=== PATIENT | female | born 1965 | race Caucasian/White ===

== ENCOUNTER 2016-09-21 13:10 | Emergency (ER) | payer MEDICAID, OTHER, SELFPAY ==
[2016-09-21 13:31] VITALS: BP 149/93
--- NOTE | 2016-09-21 14:16 | CR ---
Wrist 2V Lt HISTORY: Injury COMPARISON: None FINDINGS: There is subtle evidence of cortical disruption at the lateral aspect of the radial styloi d. The carpal bones are intact. The ulna is unremarkable. Impression: 1. A subtle nondisplaced fracture of the radial styloid process cannot be excluded.
[2016-09-21] MEDS ORDERED: Ketorolac 60 MG/2 ML SDV IM ONE (14:25)
--- NOTE | 2016-09-21 14:32 | EDM.PDOC ---
ED HPI Trauma - General Chief Complaint: Upper Extremity Injury/Pain Stated Complaint: LEFT WRIST PAIN/FALL Time Seen by Provider: 09/21/16 13:35 Source: Reports: Patient, RN notes reviewed History Limitations: Reports: No limitations - History of Present Illness INITIAL COMMENTS - FREE TEXT/NARRATIVE: 51-year-old female presents emergency department for a complaint of left wrist pain, She slipped and fell on the ice yesterday on outstretched hand she has some edema and limited range of movement of the left wrist Allergies/ADRs: Allergies No Known Allergies Allergy (Verified 09/21/16 13:25) Home Medications: Ambulatory Orders NK [No Known Home Meds] 09/21/16 [Confirmed 09/21/16] Past Medical History - Past Surgical History Female Surgical History: Reports: section Social & Family History - Tobacco Use Smoking Status *Q: Current Every Day Smoker Years of Tobacco use: 30 Packs/Tins Daily: 1 Review of Systems - Review of Systems Review Of Systems: See Below Constitutional: Reports: no symptoms Musculoskeletal: Reports: joint pain (Left wrist) Trauma Exam - Physical Exam Exam: See Below Text/Narrative:: Examination of her left wrist she does have an obvious amount of edema on the lateral aspect radial pulses 2+ she has limited range of motion of the wrist full range of motion of the digits no pain or tenderness at the elbow Exam Limited By: No limitations General Appearance: Reports: alert, WD/WN, no apparent distress Course - Vital Signs Last Recorded V/S: Last Vital Signs Temp 97.9 F 09/21/16 13:29 Pulse 73 09/21/16 13:29 Resp 14 09/21/16 13:29 BP 149/93 H 09/21/16 13:29 Pulse Ox 96 09/21/16 13:29 - Orders/Labs/Meds Meds: Medications Discontinued Medications Generic Name Dose Route Start Last Admin Trade Name Freq PRN Reason Stop Dose Admin Ketorolac Tromethamine 60 mg 09/21/16 14:25 Toradol IM 09/21/16 14:26 ONETIME ONE Departure - Departure Time of Disposition: 14:31 Disposition: Home, Self-Care 01 Condition: good Clinical Impression: Distal radius fracture, left Qualifiers: Encounter type: initial encounter Fracture type: closed Fracture morphology: Colles' Qualified Code(s): S52.532A - Colles' fracture of left radius, initial encounter for closed fracture Forms: ED Department Discharge Additional Instructions: Please follow up with orthopedics for further evaluation - Assessment/Plan Plan: Assessment Acuity = acute Site and laterality = left radius fracture Etiology = secondary to a fall on outstretched hand Manifestations = pain Location of injury = home Lab values = x-ray demonstrates a subtle fracture distal radius Plan called and Discussed case with 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 This note was dictated using [employer] voice recognition software please call with any questions.
--- NOTE | 2016-09-21 14:43 | PCM.CONS ---
H&P History of Present Illness - General Date of Service: 09/21/16 Admit Problem/Dx: Юлия is a 51 year old female who is here for a distal radius fracture. She noted that she fell on the ice today and injured her left wrist. She is having severe pain in that area. She notes increase swelling. She notes no other injuries at this time. Source of Information: Patient History Limitations: Reports: No limitations - Related Data Allergies/Adverse Reactions: Allergies Allergy/AdvReac Type Severity Reaction Status Date / Time No Known Allergies Allergy Verified 09/21/16 13:25 Home Medications: Home Meds NK [No Known Home Meds] 09/21/16 [History] Past Medical History - Past Surgical History Female Surgical History: Reports: section Social & Family History - Tobacco Use Smoking Status *Q: Current Every Day Smoker Years of Tobacco use: 30 Packs/Tins Daily: 1 H&P Review of Systems - Review of Systems: Review Of Systems: See Below General: Reports: no symptoms Musculoskeletal: Reports: arm pain Skin: Reports: bruising Neurological: Reports: no symptoms Exam - Exam Exam: See Below - Vital Signs Vital Signs: Last Vital Signs Temp 36.6 C 09/21/16 13:29 Pulse 73 09/21/16 13:29 Resp 14 09/21/16 13:29 BP 149/93 H 09/21/16 13:29 Pulse Ox 96 09/21/16 13:29 Weight: 145 lb - Exam General: alert, oriented Extremities: normal inspection, normal pulses, other (small abrasion noted to left wrist) Peripheral Pulses: 2+: radial (L), radial (R) Skin: warm, dry, intact Neuro Extensive - Mental Status: alert, oriented x3 Consult PN Assessment/Plan Problem List Initiated/Reviewed/Updated: Yes Plan: Юлия is a 51 year old female who is here for a distal radius fracture. She noted that she fell on the ice today and injured her left wrist. She is having severe pain in that area. She notes increase swelling. She notes no other injuries at this time. Assessment: UPPER EXTREMITY Musculoskeletal Physical Examination Constitutional: Vital signs including height and weight were reviewed and documented on the patient's chart. General appearance demonstrates normal development and body habitus. HEENT: Normocephalic, atraumatic. Neurological: The patient is alert and oriented to person, place, and time. Mood and affect are appropriate. Gait and station are normal. Intact sensation is noted. Deep tendon reflexes are equal. Clonus negative. Neal' s negative. Coordination and balance are normal. Right upper extremity: Inspection/palpation: Normal symmetry and appearance without tenderness. Range of motion: Full range of motion without pain. Stability: Stable through range of motion. Strength: Normal muscle strength and tone. Skin: Normal skin tone without rashes or lesions. Left upper extremity: Inspection/palpation:Small abrasion noted to left wrist. tenderness noted on lateral wrist. Range of motion: Full range of motion with pain. Strength: Normal muscle strength and tone. Imaging: Distal radius fracture. Plan: I applied a splint at this time. I would like her to follow up in ortho on with an appointment with Marcus to follow for a functional brace placement. She needs to take ibuprofen for pain management. She is to call sooner if any issues.
== END 2016-09-21 14:52 | disposition home or self-care (01) ==
LOC: JP.ED 13:10
DX: S52.532A Colles' fracture of left radius, initial encounter for closed fracture (principal); F17.210 Nicotine dependence, cigarettes, uncomplicated; W00.0XXA Fall on same level due to ice and snow, initial encounter
CPT/HCPCS: 73100; 96372; 99284; J1885; 99283

== ENCOUNTER 2019-11-30 18:24 | Emergency (ER) | payer MEDICAID, OTHER, SELFPAY ==
[2019-11-30 18:43] VITALS: BP 172/105; PULSE 84
--- NOTE | 2019-11-30 18:51 | EDM.PDOC ---
ED HPI GENERAL MEDICAL PROBLEM - General Chief Complaint: Chest Pain Stated Complaint: CHEST PAIN Time Seen by Provider: 11/30/19 18:35 Source of Information: Reports: Patient History Limitations: Reports: No Limitations - History of Present Illness INITIAL COMMENTS - FREE TEXT/NARRATIVE: 54-year-old female presents with acute epigastric and chest discomfort which is been recurring over the past 2 weeks. She is a regular methamphetamine user and used again today. She is hypertensive, hyperventilating and very anxious. An evaluation at the clinic a couple of days ago with an EKG showed no cardiac acute findings and a work-up was negative, she was started on Prilosec and has taken 1 dose. Some of the pain radiates into the upper chest and into her arm. Onset: Unknown/Unsure (Symptoms have been waxing and waning for weeks) Associated Symptoms: Reports: Chest Pain, Malaise, Shortness of Breath. 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: - Past Surgical History Head Surgeries/Procedures: Reports: None Cardiovascular Surgical History: Reports: None Female Surgical History: Reports: Section Dermatological Surgical History: Reports: None Social & Family History - Tobacco Use Smoking Status *Q: Current Every Day Smoker Years of Tobacco use: 40 Packs/Tins Daily: 1 Used Tobacco, but Quit: No Second Hand Smoke Exposure: Yes - Caffeine Use Caffeine Use: Reports: Coffee - Alcohol Use Days Per Week of Alcohol Use: 7 Number of Drinks Per Day: 2 Total Drinks Per Week: 14 - Recreational Drug Use Recreational Drug Use: Yes Drug Use in Last 12 Months: Yes Recreational Drug Type: Reports: Methamphetamine Recreational Drug Use Frequency: Socially ED ROS GENERAL - Review of Systems Review Of Systems: See Below Constitutional: Denies: Fever, Chills HEENT: Reports: No Symptoms Cardiovascular: Reports: Chest Pain GI/Abdominal: Reports: Abdominal Pain ED EXAM, GENERAL - Physical Exam Exam: See Below Exam Limited By: No Limitations General Appearance: Alert, Anxious, Mild Distress Eye Exam: Bilateral Eye: Normal Inspection Head: Atraumatic Respiratory/Chest: No Respiratory Distress, Lungs Clear Cardiovascular: Regular Rate, Rhythm GI/Abdominal: Soft, Tender (Mild discomfort to palpation across the upper abdomen but no focal guarding or rebound) Extremities: Normal Inspection. No: Pedal Edema Neurological: Alert, Oriented, No Motor/Sensory Deficits Psychiatric: Anxious Skin Exam: Warm, Dry EKG INTERPRETATION Rhythm: NSR EKG Interpretation Comments: Left ventricular hypertrophy, no other findings Course - Vital Signs Last Recorded V/S: Last Vital Signs Temp 96.7 F L 11/30/19 18:40 Pulse 84 11/30/19 18:42 Resp 15 11/30/19 18:42 BP 172/105 H 11/30/19 18:42 Pulse Ox 100 11/30/19 18:42 - Orders/Labs/Meds Orders: Active Orders 24 hr Category Date Time Status EKG Documentation Completion [RC] ASDIRECTED Care 11/30/19 18:36 Active EKG 12 Lead [EK] Routine Ther 11/30/19 18:35 Ordered Labs: Laboratory Tests 11/30/19 11/30/19 Range/Units 18:35 18:35 WBC 10.4 (4.5-11.0) K/uL RBC 5.76 H (3.30-5.50) M/uL Hgb 15.5 H (12.0-15.0) g/dL Hct 47.4 (36.0-48.0) % MCV 82 (80-98) fL MCH 27 (27-31) pg MCHC 33 (32-36) % Plt Count 347 (150-400) K/uL Neut % (Auto) 44 (36-66) % Lymph % (Auto) 41 (24-44) % [place] % (Auto) 11 H (2-6) % Eos % (Auto) 3 (2-4) % Baso % (Auto) 1 (0-1) % Sodium 136 L (140-148) mmol/L Potassium 4.4 (3.6-5.2) mmol/L Chloride 102 (100-108) mmol/L Carbon Dioxide 25 (21-32) mmol/L Anion Gap 13.4 (5.0-14.0) mmol/L BUN 17 (7-18) mg/dL Creatinine 0.8 (0.6-1.0) mg/dL Est Cr Clr Drug Dosing 74.38 mL/min Estimated GFR (MDRD) > 60 (>60) Glucose 84 (74-106) mg/dL Calcium 9.3 (8.5-10.1) mg/dL Total Bilirubin 0.2 (0.2-1.0) mg/dL AST 31 (15-37) U/L ALT 47 (12-78) U/L Alkaline Phosphatase 127 H (46-116) U/L Troponin I < 0.017 (0.000-0.056) ng/mL Total Protein 7.4 (6.4-8.2) g/dL Albumin 3.7 (3.4-5.0) g/dL Globulin 3.7 H (2.3-3.5) g/dL Albumin/Globulin Ratio 1.0 L (1.2-2.2) - Re-Assessments/Exams Free Text/Narrative Re-Assessment/Exam: 11/30/19 19:11 CBC, CMP, troponin were obtained. Once in the emergency room the patient calm down and her blood pressure normalized fairly rapidly and she did not have recurrence of symptoms. 11/30/19 19:26 Labs are normal, troponin is negative, patient did not redevelop symptoms while in the emergency room. Her presentation with acute chest pain in a panic state with hyperventilation and hypertension was almost certainly brought on by the acute methamphetamine abuse. Departure - Departure Time of Disposition: 19:46 Disposition: Home, Self-Care 01 Clinical Impression: Non-cardiac chest pain - Discharge Information Instructions: Nonspecific Chest Pain, Adult Referrals: PCP,None [Primary Care Provider] - Forms: ED Department Discharge Care Plan Goals: Consider monitoring your blood pressure while avoiding methamphetamine. Make an appointment next week to establish care for a routine physical and increase activity as tolerated. Dr. Merida or Farzaneh Soria are recommended. Sepsis Event Note - Evaluation Sepsis Screening Result: No Definite Risk - Focused Exam Vital Signs: Vital Signs Temp Pulse Resp BP Pulse Ox 11/30/19 18:42 84 15 172/105 H 100 11/30/19 18:40 96.7 F L 82 20 197/111 H 100 11/30/19 18:36 96.7 F L 11/30/19 18:27 82 20 197/111 H 100 Date Exam was Performed: 11/30/19 Time Exam was Performed: 20:04 - My Orders Last 24 Hours: My Active Orders 11/30/19 18:35 EKG 12 Lead [EK] Routine 11/30/19 18:36 EKG Documentation Completion [RC] ASDIRECTED - Assessment/Plan Last 24 Hours: My Active Orders 11/30/19 18:35 EKG 12 Lead [EK] Routine 11/30/19 18:36 EKG Documentation Completion [RC] ASDIRECTED
== END 2019-11-30 19:45 | disposition home or self-care (01) ==
LOC: JP.ED 18:24
DX: R07.89 Other chest pain (principal); I10 Essential (primary) hypertension; F17.210 Nicotine dependence, cigarettes, uncomplicated
CPT/HCPCS: 36415; 80053; 84484; 85025; 93005; 99284; 99285-25

== ENCOUNTER 2020-01-03 10:49 | Emergency (ER) | payer MEDICAID ==
[2020-01-03] MEDS ORDERED: Sodium Chloride 0.9% 10 ML Syringe FLUSH PRN (11:21)
[2020-01-03] MEDS ORDERED: Sodium Chloride 0.9% 1,000 ML IV STA (11:21)
[2020-01-03] MEDS ORDERED: fentaNYL 100 MCG/2 ML SDV IVPUSH ONE (11:23)
[2020-01-03] MEDS ORDERED: Ondansetron 4 MG/2 ML SDV IVPUSH ONE (11:23)
--- NOTE | 2020-01-03 11:25 | EDM.PDOC ---
ED HPI GENERAL MEDICAL PROBLEM - General Chief Complaint: Abdominal Pain Stated Complaint: SHARP PAIN UNDER RIGHT BREAST Time Seen by Provider: 01/03/20 11:18 Source of Information: Reports: Patient, RN Notes Reviewed History Limitations: Reports: No Limitations - History of Present Illness INITIAL COMMENTS - FREE TEXT/NARRATIVE: 54-year-old female presents emergency department today complaint of right upper quadrant abdominal pain, she states she never had this type of pain before she has had no abdominal surgeries this pain really got worse this morning there is no nausea she does admit she was tubing yesterday spent most the time on her abdomen, no shortness of breath no chest pain Right Upper Abdomen Pain Score (Numeric/FACES): 10 - Related Data Allergies Allergy/AdvReac Type Severity Reaction Status Date / Time No Known Allergies Allergy Verified 01/03/20 11:12 Home Meds: Home Meds Omeprazole 40 mg PO DAILY 01/03/20 [History] Past Medical History HEENT History: Reports: Impaired Vision 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: Reports: 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: - Past Surgical History Head Surgeries/Procedures: Reports: None Female Surgical History: Reports: Section Social & Family History - Tobacco Use Smoking Status *Q: Heavy Tobacco Smoker Years of Tobacco use: 38 Packs/Tins Daily: 1 - Caffeine Use Caffeine Use: Reports: Coffee - Alcohol Use Days Per Week of Alcohol Use: 3 Number of Drinks Per Day: 2 Total Drinks Per Week: 6 - Recreational Drug Use Recreational Drug Use: No ED ROS GENERAL - Review of Systems Review Of Systems: See Below Constitutional: Reports: No Symptoms HEENT: Reports: No Symptoms Respiratory: Reports: No Symptoms Cardiovascular: Reports: Chest Pain (Lower ribs right side) GI/Abdominal: Reports: Abdominal Pain, Flatus. Denies: Nausea, Vomiting : Reports: No Symptoms Musculoskeletal: Reports: No Symptoms ED EXAM, GI/ABD - Physical Exam Exam: See Below Exam Limited By: No Limitations General Appearance: Alert, Mild Distress Respiratory/Chest: No Respiratory Distress, Lungs Clear, Normal Breath Sounds, No Accessory Muscle Use, Chest Non-Tender Cardiovascular: Regular Rate, Rhythm, No Murmur, Other (Ribs are tender right side) GI/Abdominal Exam: Soft, Tender (Right upper quadrant area) Course - Vital Signs Last Recorded V/S: Last Vital Signs Temp 96.2 F L 01/03/20 11:10 Pulse 82 01/03/20 12:29 Resp 16 01/03/20 12:29 BP 130/76 01/03/20 12:29 Pulse Ox 95 01/03/20 12:29 - Orders/Labs/Meds Orders: Active Orders 24 hr Category Date Time Status Peripheral IV Care [RC] . DIRECTED Care 01/03/20 11:21 Active Sodium Chloride 0.9% [Saline Flush] Med 01/03/20 11:21 Active 10 ml FLUSH ASDIRECTED PRN Peripheral IV Insertion Adult [OM.PC] Urgent Oth 01/03/20 11:21 Ordered Medication Orders Sodium Chloride (Saline Flush) 10 ml FLUSH ASDIRECTED PRN PRN Reason: Keep Vein Open Last Admin: 01/03/20 11:49 Dose: 10 ml Documented by: FESTUS Labs: Laboratory Tests 01/03/20 01/03/20 01/03/20 Range/Units 11:27 11:27 11:27 WBC 8.8 (4.5-11.0) K/uL RBC 5.52 H (3.30-5.50) M/uL Hgb 14.8 (12.0-15.0) g/dL Hct 46.5 (36.0-48.0) % MCV 84 (80-98) fL MCH 27 (27-31) pg MCHC 32 (32-36) % Plt Count 321 (150-400) K/uL Neut % (Auto) 62 (36-66) % Lymph % (Auto) 27 (24-44) % Casey % (Auto) 8 H (2-6) % Eos % (Auto) 2 (2-4) % Baso % (Auto) 1 (0-1) % Sodium 141 (140-148) mmol/L Potassium 4.3 (3.6-5.2) mmol/L Chloride 104 (100-108) mmol/L Carbon Dioxide 28 (21-32) mmol/L Anion Gap 8.6 (5.0-14.0) mmol/L BUN 19 H (7-18) mg/dL Creatinine 0.9 (0.6-1.0) mg/dL Est Cr Clr Drug Dosing 66.12 mL/min Estimated GFR (MDRD) > 60 (>60) Glucose 111 H (74-106) mg/dL Lactic Acid 1.0 (0.4-2.0) mmol/L Calcium 8.8 (8.5-10.1) mg/dL Total Bilirubin 0.3 (0.2-1.0) mg/dL AST 36 (15-37) U/L ALT 55 (12-78) U/L Alkaline Phosphatase 130 H (46-116) U/L Troponin I < 0.017 (0.000-0.056) ng/mL Total Protein 7.5 (6.4-8.2) g/dL Albumin 3.7 (3.4-5.0) g/dL Globulin 3.8 H (2.3-3.5) g/dL Albumin/Globulin Ratio 1.0 L (1.2-2.2) Lipase 108 (73-393) U/L Urine Color (YELLOW) Urine Appearance (CLEAR) Urine pH (5.0-8.0) Ur Specific [place] (1.008-1.030) Urine Protein (NEGATIVE) mg/dL Urine Glucose (UA) (NEGATIVE) mg/dL Urine Ketones (NEGATIVE) mg/dL Urine Occult Blood (NEGATIVE) Urine Nitrite (NEGATIVE) Urine Bilirubin (NEGATIVE) Urine Urobilinogen (0.2-1.0) EU/dL Ur Leukocyte Esterase (NEGATIVE) Urine RBC (0-5) Urine WBC (0-5) Ur Epithelial Cells Amorphous Sediment Urine Bacteria Urine Mucus 01/03/20 Range/Units 13:44 WBC (4.5-11.0) K/uL RBC (3.30-5.50) M/uL Hgb (12.0-15.0) g/dL Hct (36.0-48.0) % MCV (80-98) fL MCH (27-31) pg MCHC (32-36) % Plt Count (150-400) K/uL Neut % (Auto) (36-66) % Lymph % (Auto) (24-44) % Casey % (Auto) (2-6) % Eos % (Auto) (2-4) % Baso % (Auto) (0-1) % Sodium (140-148) mmol/L Potassium (3.6-5.2) mmol/L Chloride (100-108) mmol/L Carbon Dioxide (21-32) mmol/L Anion Gap (5.0-14.0) mmol/L BUN (7-18) mg/dL Creatinine (0.6-1.0) mg/dL Est Cr Clr Drug Dosing mL/min Estimated GFR (MDRD) (>60) Glucose (74-106) mg/dL Lactic Acid (0.4-2.0) mmol/L Calcium (8.5-10.1) mg/dL Total Bilirubin (0.2-1.0) mg/dL AST (15-37) U/L ALT (12-78) U/L Alkaline Phosphatase (46-116) U/L Troponin I (0.000-0.056) ng/mL Total Protein (6.4-8.2) g/dL Albumin (3.4-5.0) g/dL Globulin (2.3-3.5) g/dL Albumin/Globulin Ratio (1.2-2.2) Lipase (73-393) U/L Urine Color Yellow (YELLOW) Urine Appearance Clear (CLEAR) Urine pH 6.0 (5.0-8.0) Ur Specific [place] 1.010 (1.008-1.030) Urine Protein Negative (NEGATIVE) mg/dL Urine Glucose (UA) Negative (NEGATIVE) mg/dL Urine Ketones Negative (NEGATIVE) mg/dL Urine Occult Blood Trace-intact H (NEGATIVE) Urine Nitrite Negative (NEGATIVE) Urine Bilirubin Negative (NEGATIVE) Urine Urobilinogen 0.2 (0.2-1.0) EU/dL Ur Leukocyte Esterase Negative (NEGATIVE) Urine RBC 5-10 H (0-5) Urine WBC Not seen (0-5) Ur Epithelial Cells Rare Amorphous Sediment Rare Urine Bacteria Not seen Urine Mucus Not seen Meds: Medications Generic Name Dose Route Start Last Admin Trade Name Freq PRN Reason Stop Dose Admin Sodium Chloride 10 ml 01/03/20 11:21 01/03/20 11:49 Saline Flush FLUSH 10 ml ASDIRECTED PRN Administration Keep Vein Open Discontinued Medications Generic Name Dose Route Start Last Admin Trade Name Freq PRN Reason Stop Dose Admin Fentanyl 50 mcg 01/03/20 11:23 01/03/20 11:37 Sublimaze IVPUSH 01/03/20 11:24 50 mcg ONETIME ONE Administration Hydromorphone HCl 1 mg 01/03/20 12:19 01/03/20 12:23 Dilaudid IVPUSH 01/03/20 12:20 1 mg ONETIME ONE Administration Sodium Chloride 1,000 mls @ 500 mls/hr 01/03/20 11:21 01/03/20 11:39 Normal Saline IV 01/03/20 13:20 500 mls/hr .BOLUS STA Administration Sodium Chloride 79 mls @ 3.5 mls/sec 01/03/20 11:45 01/03/20 11:50 Normal Saline IV 01/03/20 14:00 3.5 mls/sec ASDIRECTED MITA Administration Iopamidol 128 ml 01/03/20 11:31 01/03/20 11:50 Isovue-300 (61%) IV 01/03/20 11:32 128 ml ONETIME ONE Administration Ketorolac Tromethamine 30 mg 01/03/20 12:37 01/03/20 13:10 Toradol IVPUSH 01/03/20 12:38 30 mg ONETIME ONE Administration Ondansetron HCl 4 mg 01/03/20 11:23 01/03/20 11:35 Zofran IVPUSH 01/03/20 11:24 4 mg ONETIME ONE Administration Sodium Chloride 10 ml 01/03/20 11:31 01/03/20 11:37 Saline Flush FLUSH 01/03/20 11:32 10 ml ONETIME ONE Administration Departure - Departure Time of Disposition: 14:04 Disposition: Home, Self-Care 01 Condition: Fair Clinical Impression: Abdominal pain Qualifiers: Abdominal location: right upper quadrant Qualified Code(s): R10.11 - Right upper quadrant pain - Discharge Information Instructions: Abdominal Pain, Adult Referrals: Zheng Brewster NP [Primary Care Provider] - Forms: ED Department Discharge Additional Instructions: Try using ibuprofen for pain control for the next couple of days, please follow- up with your primary care in the next 3 to 5 days for further evaluation if your pain is not better, call or return to the emergency department worsening of symptoms Sepsis Event Note (ED) - Evaluation Sepsis Screening Result: Possible Sepsis Risk - Focused Exam Vital Signs: Vital Signs Temp Pulse Resp BP Pulse Ox 01/03/20 12:29 82 16 130/76 95 01/03/20 12:18 80 18 152/85 H 97 01/03/20 11:35 92 18 166/97 H 98 01/03/20 11:10 96.2 F L 99 21 H 187/114 H 98 01/03/20 11:08 96.2 F L 99 21 H 187/114 H 98 - My Orders Last 24 Hours: My Active Orders 01/03/20 11:21 Peripheral IV Care [RC] . DIRECTED Sodium Chloride 0.9% [Saline Flush] 10 ml FLUSH ASDIRECTED PRN Peripheral IV Insertion Adult [OM.PC] Urgent - Assessment/Plan Last 24 Hours: My Active Orders 01/03/20 11:21 Peripheral IV Care [RC] . DIRECTED Sodium Chloride 0.9% [Saline Flush] 10 ml FLUSH ASDIRECTED PRN Peripheral IV Insertion Adult [OM.PC] Urgent Plan: Assessment Acuity = acute Site and laterality = right upper quadrant abdominal pain Etiology = probably related to muscle skeletal trauma Manifestations = none Location of injury = Home Lab values = CBC, CMP unremarkable urinalysis does reveal 5-10 RBCs consistent with hematuria CT scan of the abdomen shows no acute process Plan She did not get significant relief from any of the narcotics provided however he got good relief from Toradol. I did review CT scan and lab results with her plan is to follow-up with her primary care in the next 3 to 5 days for further evaluation if not better in the meantime she will use ibuprofen for pain control This note was dictated using [employer] voice recognition software please call with any questions on syntax or grammar.
[2020-01-03] MEDS ORDERED: Iopamidol 612 MG/ML 500 ML Multipack Bottle IV ONE (11:31)
[2020-01-03] MEDS ORDERED: Sodium Chloride 0.9% 10 ML Syringe FLUSH ONE (11:31)
[2020-01-03] MEDS ORDERED: HYDROmorphone 1 MG/ML Syringe IVPUSH ONE (12:19)
[2020-01-03 12:30] VITALS: BP 130/76; PULSE 82
--- NOTE | 2020-01-03 12:31 | CT ---
Abdomen Pelvis w Cont CLINICAL HISTORY: Right upper quadrant pain, trauma COMPARISON: None. TECHNIQUE: Axial tomographic images are obtained from the dome of the diaphragm to the pubic symphysis without IV contrast enhancement. No oral contrast was used. Prescribed dose FINDINGS: The lung bases are clear. The liver shows no mass or biliary dilatation. The gallbladder contains some small densities in the dependent portion which are suspect for small stones. The spleen has a normal contour and size. The pancreas shows no mass or inflammatory change. The adrenal glands appear normal bilaterally. The kidneys show no mass, stones or hydronephrosis. The ureters have a normal course and contour. The bladder has a normal contour. There is a bicornuate uterus. The aorta has a normal contour. There are a few scattered all periaortic lymph nodes. These are nonspecific. Abdominal pelvic fat planes and low pelvic side hoff are well demarcated. The intestinal gas pattern is nonacute. Appendix has normal contour. Visualized osseous structures show no fracture IMPRESSION: No mass, adenopathy or inflammatory change Bicornuate uterus
[2020-01-03] MEDS ORDERED: Ketorolac 30 MG/ML SDV IVPUSH ONE (12:37)
== END 2020-01-03 14:35 | disposition home or self-care (01) ==
LOC: JP.ED 10:49
DX: R10.11 Right upper quadrant pain (principal); I10 Essential (primary) hypertension; F17.210 Nicotine dependence, cigarettes, uncomplicated
CPT/HCPCS: 36415; 74177; 80053; 81001; 83605; 83690; 84484; 85025; 96374; 96375; 99284; J1170; J1885; J2405; J3010; J7030; J7050; Q9967; 99283

== ENCOUNTER 2020-02-01 16:03 | Emergency (ER) | payer MEDICAID ==
[~2020-02-01 16:03] MED LIST: EPINEPHrine 1 MG/ML SDV ONE
[2020-02-01] MEDS ORDERED: DOPamine/Dextrose 5%-Water 400 MG/250 ML BAG ONE (16:10)
[2020-02-01] MEDS ORDERED: Sodium Chloride 0.9% 1,000 ML IV ONE (16:11)
[2020-02-01] MEDS ORDERED: DOPamine/Dextrose 5%-Water 400 MG/250 ML BAG IV SCH (16:15)
[2020-02-01] MEDS ORDERED: Sodium Bicarbonate 8.4% 50 MEQ/50 ML Syringe IVPUSH ONE (16:26)
[2020-02-01 16:32] VITALS: BP 114/50; PULSE 108
--- NOTE | 2020-02-01 16:35 | EDM.PDOC ---
ED HPI GENERAL MEDICAL PROBLEM - General Chief Complaint: Drug or Alcohol Abuse Stated Complaint: MEDICAL VIA [facility] Time Seen by Provider: 02/01/20 16:05 Source of Information: Reports: EMS, Old Records History Limitations: Reports: Altered Mental Status - History of Present Illness INITIAL COMMENTS - FREE TEXT/NARRATIVE: 54 yo female collapsed as she entered her home reportedly after methamphetamine use. EMS arrived to find her pulseless and nonbreathing. EMS was able to restore ROSC and arrives in our ER with assisted ventilations and a IO line in her L tibia. Onset: Today, Sudden Onset Date: 02/01/20 Duration: Minutes:, Constant Location: Reports: Generalized Severity: Severe Improves with: Reports: Other (assisted ventilations) Worsens with: Reports: Other (? drug OD) Context: Reports: Other (See HPI) Associated Symptoms: Reports: Syncope Treatments TIRE CLASSIFIER: Reports: Other (see below) (EPI, intubation, IV fluids, CPR) - Related Data Allergies Allergy/AdvReac Type Severity Reaction Status Date / Time No Known Allergies Allergy Verified 01/03/20 11:12 Home Meds: Home Meds Omeprazole 40 mg PO DAILY 01/03/20 [History] Past Medical History HEENT History: Reports: Impaired Vision 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: Reports: Hypertension [employer] History: Reports: - Past Surgical History Head Surgeries/Procedures: Reports: None Female Surgical History: Reports: Section Social & Family History - Caffeine Use Caffeine Use: Reports: Coffee ED ROS GENERAL - Review of Systems Review Of Systems: Unable To Obtain (coma) Reason Not Obtained: coma Constitutional: Reports: ROS unobtainable - Physical Exam Exam: See Below Exam Limited By: No Limitations General Appearance: Obtunded (comatose) Eye Exam: Bilateral Eye: Other (pupils midpoint and fixed) Ears: Normal External Exam, Normal Canal Nose: Normal Inspection, No Blood Throat/Mouth: Normal Inspection, Normal Lips, Normal Oropharynx, Normal Voice, No Airway Compromise Head Exam: Atraumatic, Normocephalic Neck: Normal Inspection Respiratory/Chest: Other (relative apnea with some agonal breaths) Cardiovascular: Regular Rate, Rhythm, No Edema GI/Abdominal: Normal Bowel Sounds, Soft, Non-Tender, No Distention Neuro Exam (Abbreviated): Unresponsive Back Exam: Normal Inspection Extremities: Normal Inspection, No Pedal Edema. No: Pedal Edema Psychiatric: Normal Affect, Normal Mood Skin Exam: Warm, Dry, Intact, Normal Color, No Rash Course - Vital Signs Last Recorded V/S: Last Vital Signs Temp 36.4 C 02/01/20 16:03 Pulse 93 02/01/20 16:18 Resp 11 L 02/01/20 16:18 BP 82/35 L 02/01/20 16:18 Pulse Ox 96 02/01/20 16:18 - Orders/Labs/Meds Orders: Active Orders 24 hr Category Date Time Status Bean Catheter Insertion [Insert Urinary Catheter] [OM. Care 02/01/20 16:15 Ordered PC] Q24H Urinary Catheter Assessment [RC] ASDIRECTED Care 02/01/20 16:11 Active Head wo Cont [CT] Stat Exams 02/01/20 16:18 Ordered ETHANOL BLOOD MEDICAL [CHEM] Stat Lab 02/01/20 16:19 Received TROPONIN I [CHEM] Stat Lab 02/01/20 16:06 Ordered DOPamine/Dextrose 5%-Water [DOPamine in D5W 400 MG/250 Med 02/01/20 16:15 Active ML] 400 mg in 250 ml IV TITRATE Sodium Chloride 0.9% [Normal Saline] 1,000 ml Med 02/01/20 16:11 Active IV .BOLUS Medication Orders Dopamine HCl/Dextrose (Dopamine In D5w 400 Mg/250 Ml) 400 mg in 250 mls @ 31.978 mls/hr IV TITRATE MITA; Protocol Last Admin: 02/01/20 16:15 Dose: 10 mcg/kg/min, 31.978 mls/hr Documented by: MAMI Sodium Chloride (Normal Saline) 1,000 mls @ 1,000 mls/hr IV .BOLUS ONE Stop: 02/01/20 17:10 Last Admin: 02/01/20 16:28 Dose: 1,000 mls/hr Documented by: MAMI Labs: Laboratory Tests 02/01/20 02/01/20 02/01/20 Range/Units 16:06 16:11 16:16 WBC 12.0 H (4.5-11.0) K/uL RBC 4.87 (3.30-5.50) M/uL Hgb 12.9 (12.0-15.0) g/dL Hct 41.6 (36.0-48.0) % MCV 85 (80-98) fL MCH 27 (27-31) pg MCHC 31 L (32-36) % Plt Count 238 (150-400) K/uL Puncture Site Rt.brachial ABG pH 6.949 L* (7.350-7.450) ABG pCO2 66.2 H (35.0-42.0) mmHg ABG pO2 199.0 H (75.0-100.0) mmHg ABG HCO3 13.8 L (22.0-26.0) mmol/L ABG Total CO2 14.1 L (21.0-25.0) mmol/L ABG O2 Saturation 97.2 (95.0-98.0) % ABG O2 Content 17.9 (15.0-23.0) %vol ABG Base Excess -19.6 mm/L ABG Hemoglobin 13.3 (12.0-16.0) g/dL ABG Oxyhemoglobin 93.5 % ABG Carboxyhemoglobin 2.9 H (0.0-1.6) % ABG Methemoglobin 0.9 % Kerwin Test TNP O2 Delivery Device Resuscitation bag Urine Color (YELLOW) Urine Appearance (CLEAR) Urine pH (5.0-8.0) Ur Specific [place] (1.008-1.030) Urine Protein (NEGATIVE) mg/dL Urine Glucose (UA) (NEGATIVE) mg/dL Urine Ketones (NEGATIVE) mg/dL Urine Occult Blood (NEGATIVE) Urine Nitrite (NEGATIVE) Urine Bilirubin (NEGATIVE) Urine Urobilinogen (0.2-1.0) EU/dL Ur Leukocyte Esterase (NEGATIVE) Urine RBC (0-5) Urine WBC (0-5) Ur Epithelial Cells Amorphous Sediment Urine Bacteria Urine Mucus Urine Opiates Screen Negative (NEGATIVE) Ur Oxycodone Screen Negative (NEGATIVE) Urine Methadone Screen Negative (NEGATIVE) Ur Propoxyphene Screen Negative (NEGATIVE) Ur Barbiturates Screen Negative (NEGATIVE) Ur Tricyclics Screen Negative (NEGATIVE) Ur Phencyclidine Scrn Negative (NEGATIVE) Ur Amphetamine Screen Presumptive positive H (NEGATIVE) U Methamphetamines Scrn Presumptive positive H (NEGATIVE) Urine MDMA Screen Presumptive positive H (NEGATIVE) U Benzodiazepines Scrn Negative (NEGATIVE) U Cocaine Metab Screen Negative (NEGATIVE) U Marijuana (THC) Screen Negative (NEGATIVE) 02/01/20 Range/Units Unknown WBC (4.5-11.0) K/uL RBC (3.30-5.50) M/uL Hgb (12.0-15.0) g/dL Hct (36.0-48.0) % MCV (80-98) fL MCH (27-31) pg MCHC (32-36) % Plt Count (150-400) K/uL Puncture Site ABG pH (7.350-7.450) ABG pCO2 (35.0-42.0) mmHg ABG pO2 (75.0-100.0) mmHg ABG HCO3 (22.0-26.0) mmol/L ABG Total CO2 (21.0-25.0) mmol/L ABG O2 Saturation (95.0-98.0) % ABG O2 Content (15.0-23.0) %vol ABG Base Excess mm/L ABG Hemoglobin (12.0-16.0) g/dL ABG Oxyhemoglobin % ABG Carboxyhemoglobin (0.0-1.6) % ABG Methemoglobin % Kerwin Test O2 Delivery Device Urine Color Yellow (YELLOW) Urine Appearance Clear (CLEAR) Urine pH 5.5 (5.0-8.0) Ur Specific [place] 1.025 (1.008-1.030) Urine Protein Negative (NEGATIVE) mg/dL Urine Glucose (UA) Negative (NEGATIVE) mg/dL Urine Ketones Negative (NEGATIVE) mg/dL Urine Occult Blood Negative (NEGATIVE) Urine Nitrite Negative (NEGATIVE) Urine Bilirubin Negative (NEGATIVE) Urine Urobilinogen 0.2 (0.2-1.0) EU/dL Ur Leukocyte Esterase Negative (NEGATIVE) Urine RBC 0-5 (0-5) Urine WBC 0-5 (0-5) Ur Epithelial Cells Few Amorphous Sediment Few Urine Bacteria Not seen Urine Mucus Not seen Urine Opiates Screen (NEGATIVE) Ur Oxycodone Screen (NEGATIVE) Urine Methadone Screen (NEGATIVE) Ur Propoxyphene Screen (NEGATIVE) Ur Barbiturates Screen (NEGATIVE) Ur Tricyclics Screen (NEGATIVE) Ur Phencyclidine Scrn (NEGATIVE) Ur Amphetamine Screen (NEGATIVE) U Methamphetamines Scrn (NEGATIVE) Urine MDMA Screen (NEGATIVE) U Benzodiazepines Scrn (NEGATIVE) U Cocaine Metab Screen (NEGATIVE) U Marijuana (THC) Screen (NEGATIVE) Meds: Medications Generic Name Dose Route Start Last Admin Trade Name Freq PRN Reason Stop Dose Admin Dopamine HCl/Dextrose 400 mg in 250 mls @ 31.978 mls/hr 02/01/20 16:15 02/01/20 16:15 Dopamine In D5w 400 Mg/250 Ml IV 10 mcg/kg/min TITRATE MITA 31.978 mls/hr Administration Protocol 10 MCG/KG/MIN Sodium Chloride 1,000 mls @ 1,000 mls/hr 02/01/20 16:11 02/01/20 16:28 Normal Saline IV 02/01/20 17:10 1,000 mls/hr .BOLUS ONE Administration Discontinued Medications Generic Name Dose Route Start Last Admin Trade Name Donna PRN Reason Stop Dose Admin Dopamine HCl/Dextrose Confirm 02/01/20 16:10 02/01/20 16:30 Dopamine In D5w 400 Mg/250 Ml Administered 02/01/20 16:11 Not Given Dose 400 mg in 250 mls @ as directed .ROUTE .STK-MED ONE Sodium Bicarbonate 50 meq 02/01/20 16:26 Sodium Bicarbonate 8.4% IVPUSH 02/01/20 16:27 ONETIME ONE Departure - Departure Time of Disposition: 16:38 Disposition: DC/Tfer to Acute Hospital 02 Condition: Critical Clinical Impression: Acidosis, Methamphetamine abuse Comatose Qualifiers: Coma depth: Burns coma 3-8 Coma timing: at arrival to emergency department Qualified Code(s): R40.2432 - Burns coma scale score 3-8, at arrival to emergency department - Discharge Information *PRESCRIPTION DRUG MONITORING PROGRAM REVIEWED*: Not Applicable *COPY OF PRESCRIPTION DRUG MONITORING REPORT IN PATIENT JANE: Not Applicable Referrals: PCP,None [Primary Care Provider] - Sepsis Event Note (ED) - Focused Exam Vital Signs: Vital Signs Temp Pulse Resp BP Pulse Ox 02/01/20 16:18 93 11 L 82/35 L 96 02/01/20 16:13 91 9 L 108/63 93 L 02/01/20 16:08 81 87/43 L 02/01/20 16:06 80 85/39 L 02/01/20 16:03 36.4 C 55 L 9 L 107/82 93 L - My Orders Last 24 Hours: My Active Orders 02/01/20 16:06 TROPONIN I [CHEM] Stat 02/01/20 16:11 Urinary Catheter Assessment [RC] ASDIRECTED Sodium Chloride 0.9% [Normal Saline] 1,000 ml IV .BOLUS 02/01/20 16:15 Bean Catheter Insertion [Insert Urinary Catheter] [OM.PC] Q24H DOPamine/Dextrose 5%-Water [DOPamine in D5W 400 MG/250 ML] 400 mg in 250 ml IV TITRATE 02/01/20 16:18 Head wo Cont [CT] Stat 02/01/20 16:19 ETHANOL BLOOD MEDICAL [CHEM] Stat - Assessment/Plan Last 24 Hours: My Active Orders 02/01/20 16:06 TROPONIN I [CHEM] Stat 02/01/20 16:11 Urinary Catheter Assessment [RC] ASDIRECTED Sodium Chloride 0.9% [Normal Saline] 1,000 ml IV .BOLUS 02/01/20 16:15 Bean Catheter Insertion [Insert Urinary Catheter] [OM.PC] Q24H DOPamine/Dextrose 5%-Water [DOPamine in D5W 400 MG/250 ML] 400 mg in 250 ml IV TITRATE 02/01/20 16:18 Head wo Cont [CT] Stat 02/01/20 16:19 ETHANOL BLOOD MEDICAL [CHEM] Stat
--- NOTE | 2020-02-01 17:27 | CRLCT ---
INDICATION: Coma. COMPARISON: None. TECHNIQUE: CT of the head without IV contrast. Coronal and sagittal reconstructions are provided. FINDINGS: There appears to be mild diffuse sulcal effacement suspicious for underlying cerebral edema. Discrete sulci are only visualized at the vertex. The bell-white differentiation appears preserved. No intracranial hemorrhage, mass effect, or evidence of acute infarct. No midline shift. No abnormal extra-axial fluid collections. Normal caliber ventricular system. Orbits and extraocular muscles are symmetric. Paranasal sinuses and mastoid air cells are clear. No acute fracture. Possible skin defect overlying the right lateral frontal bone, versus artifact. IMPRESSION: : 1. Mild diffuse sulcal effacement is suspicious for underlying cerebral edema. The bell-white differentiation appears preserved. 2. No other acute intracranial findings. 3. Possible skin defect overlying the right lateral frontal bone, versus artifact. Correlate with physical exam. Please note that all CT scans at this facility use dose modulation, iterative reconstruction, and/or weight-based dosing when appropriate to reduce radiation dose to as low as reasonably achievable. Dictated by Flores Billings MD @ Feb 01 2020 5:14PM Signed by Dr. Flores Billings @ Feb 01 2020 5:26PM
== END 2020-02-01 17:16 ==
LOC: JP.ED 16:03
DX: E87.2 Acidosis (principal); R40.2432 Glasgow coma scale score 3-8, at arrival to emergency department; F15.10 Other stimulant abuse, uncomplicated; I10 Essential (primary) hypertension; Z79.899 Other long term (current) drug therapy
CPT/HCPCS: 36415; 36600; 51702; 70450; 80305; 80307; 81001; 82803; 84484; 85027; 92950; 96365; 96375; 99285; J1265; J7030

== ENCOUNTER 2021-01-04 16:50 | Emergency (ER) | payer MEDICAID ==
[2021-01-04] MEDS ORDERED: Silver Nitrate Applicator Each ONE (17:16)
--- NOTE | 2021-01-04 17:26 | EDM.PDOC ---
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 History: Reports: Other (See Below) (Anoxic brain injury) - Past Surgical History Head Surgeries/Procedures: Reports: None Female Surgical History: Reports: Section Dermatological Surgical History: Reports: None Social & Family History - Caffeine Use Caffeine Use: Reports: Coffee ED ROS ENT - Review of Systems Review Of Systems: Unable To Obtain Reason Not Obtained: Nonverbal ED EXAM, ENT - Physical Exam Exam: See Below Text/Narrative:: Examination of the lip there are multiple scars consistent with lip lacerations in various healing stages the current wound does have a small amount of bruising no active bleeding is present this is controlled with a small dab of silver nitrate Exam Limited By: Physical Impairment General Appearance: Alert Course - Vital Signs Last Recorded V/S: Last Vital Signs Temp 98.4 F 01/04/21 17:00 Pulse 69 01/04/21 17:00 Resp 16 01/04/21 17:00 BP 165/83 H 01/04/21 17:00 Pulse Ox 92 L 01/04/21 17:00 - Orders/Labs/Meds Meds: Medications Discontinued Medications Generic Name Dose Route Start Last Admin Trade Name Donna PRN Reason Stop Dose Admin Silver Nitrate Confirm 01/04/21 17:16 Silver Nitrate Applicator Each Administered 01/04/21 17:17 Dose 1 each .ROUTE .STK-MED ONE Departure - Departure Time of Disposition: 17:25 Disposition: DC/Tfer to [facility] Condition: Poor Clinical Impression: Lip abrasion Qualifiers: Encounter type: initial encounter Qualified Code(s): S00.511A - Abrasion of lip, initial encounter - Discharge Information Instructions: Abrasion, [id number] Referrals: PCP,None [Primary Care Provider] - Additional Instructions: Recommend bite block or mouthguard until behavior is better controlled Sepsis Event Note (ED) - Focused Exam Vital Signs: Vital Signs Temp Pulse Resp BP Pulse Ox 01/04/21 17:00 98.4 F 69 16 165/83 H 92 L - Assessment/Plan Plan: Assessment Acuity = acute Site and laterality = lip laceration Etiology = secondary to biting Manifestations = none Location of injury = Home Lab values = none Plan Return to assisted recommend bite block or mouthguard until lip biting behavior is better control This note was dictated using [employer] voice recognition software please call with any questions on syntax or grammar.
[2021-01-04 18:43] VITALS: BP 154/100; PULSE 67
== END 2021-01-04 18:15 ==
LOC: JP.ED 16:50
DX: S00.511A Abrasion of lip, initial encounter (principal); I10 Essential (primary) hypertension; Z79.899 Other long term (current) drug therapy; W50.3XXA Accidental bite by another person, initial encounter
CPT/HCPCS: 12011; 99282; 99283-25

== ENCOUNTER 2021-01-11 15:01 | Emergency (ER) | payer MEDICAID ==
[2021-01-11 15:10] VITALS: BP 171/96; PULSE 73
--- NOTE | 2021-01-11 15:21 | EDM.PDOC ---
ED HPI GENERAL MEDICAL PROBLEM - General Chief Complaint: ENT Problem Stated Complaint: [facility] Time Seen by Provider: 01/11/21 15:05 Source of Information: Reports: Patient History Limitations: Reports: No Limitations - History of Present Illness INITIAL COMMENTS - FREE TEXT/NARRATIVE: 55 yo NSH female was sent from her residence to the ER again for eval of a R sided lower lip lesion that she repeatedly has been biting and then it starts to bleed. EMT's respond and generally find that it has stopped bleeding when they arrive. This lip lesion has obviously been present for an extended period of time, it is not clear why a definitive plan has not been made for excision. Patient is severely cognitively impaired. Onset: Today (started bleeding), Sudden Onset Date: 01/11/21 Duration: Minutes: Location: Reports: Face (lower lip) Quality: Reports: Other (unknown) Severity: Mild Improves with: Reports: Other (? 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 (see below) (none) - Related Data Allergies Allergy/AdvReac Type Severity Reaction Status Date / Time No Known Allergies Allergy Verified 01/04/21 17:13 Home Meds: Home Meds Omeprazole 40 mg PO DAILY 01/03/20 [History] Acetaminophen [Tylenol Arthritis Pain] 2 tab GTUBE BID 01/04/21 [History] Amiodarone HCl [Pacerone] 1 tab GTUBE BID 01/04/21 [History] Aspirin 1 tab GTUBE DAILY 01/04/21 [History] Baclofen 10 ml GTUBE Q6HR 01/04/21 [History] Lacosamide [Vimpat] 10 ml GTUBE BID 01/04/21 [History] Venlafaxine HCl [Venlafaxine ER] 1 tab GTUBE BID 01/04/21 [History] carvediloL [Carvedilol] 1 tab GTUBE BID 01/04/21 [History] fentaNYL [Fentanyl] 1 patch TOP ASDIRECTED 01/04/21 [History] levETIRAcetam [Levetiracetam] 15 ml GTUBE BID 01/04/21 [History] lisinopriL [Lisinopril] 1 tab GTUBE BID 01/04/21 [History] Past Medical History HEENT History: Reports: Impaired Vision 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: Reports: Hypertension [employer] History: Reports: Neurological History: Reports: Other (See Below) - Past Surgical History Head Surgeries/Procedures: Reports: None Cardiovascular Surgical History: Reports: None Female Surgical History: Reports: Section Dermatological Surgical History: Reports: None Social & Family History - Caffeine Use Caffeine Use: Reports: Coffee ED ROS ENT - Review of Systems Review Of Systems: See Below Constitutional: Reports: No Symptoms HEENT: Reports: Other (exophytic lower lip lesion on the right side. ) Respiratory: Reports: No Symptoms Cardiovascular: Reports: No Symptoms GI/Abdominal: Reports: No Symptoms Skin: Reports: No Symptoms Neurological: Reports: Other (nonverbal) ED EXAM, ENT - Physical Exam Exam: See Below Exam Limited By: No Limitations General Appearance: WD/WN, No Apparent Distress Ears: Normal External Exam, Normal Canal Nose: Normal Inspection, No Blood Mouth/Throat: No: Normal Lips (there is a 0.25 inch long lesion protruding upward from the lower lip, R side. This lesion is exophytic and is easily drawn into the patient's mouth where she can chew on it. No active bleeding at this time. ), Lip Swelling, Throat Swelling Head: Atraumatic, Normocephalic Neck: Normal Inspection Extremities: Normal Inspection Neurological: CN II-XII Intact Skin: Warm, Dry, Intact, Normal Color, No Rash Course - Vital Signs Last Recorded V/S: Last Vital Signs Temp 36.2 C 01/11/21 15:09 Pulse 73 01/11/21 15:09 Resp 14 01/11/21 15:09 BP 171/96 H 01/11/21 15:09 Pulse Ox 99 01/11/21 15:09 Departure - Departure Time of Disposition: 15:28 Disposition: Home, Self-Care 01 Condition: Fair Clinical Impression: Lower lip carcinoma - Discharge Information *PRESCRIPTION DRUG MONITORING PROGRAM REVIEWED*: Not Applicable *COPY OF PRESCRIPTION DRUG MONITORING REPORT IN PATIENT JANE: Not Applicable Referrals: PCP,None [Primary Care Provider] - Additional Instructions: Get ENT referral from primary for removal. Direct pressure as needed. Sepsis Event Note (ED) - Evaluation Sepsis Screening Result: No Definite Risk - Focused Exam Vital Signs: Vital Signs Temp Pulse Resp BP Pulse Ox 01/11/21 15:09 36.2 C 73 14 171/96 H 99
== END 2021-01-11 15:51 | disposition home or self-care (01) ==
LOC: JP.ED 15:01
DX: C00.1 Malignant neoplasm of external lower lip (principal); I10 Essential (primary) hypertension; Z79.82 Long term (current) use of aspirin; Z79.899 Other long term (current) drug therapy
CPT/HCPCS: 99284

== ENCOUNTER 2021-01-11 15:32 | Emergency (ER) | payer MEDICAID ==
[2021-01-11] MEDS ORDERED: Lidocaine 1% with EPINEPHrine 1:100,000 50 ML MDV SUBCUT STA (15:34)
--- NOTE | 2021-01-11 16:13 | EDM.PDOC ---
ED HPI GENERAL MEDICAL PROBLEM - General Chief Complaint: ENT Problem Stated Complaint: BIT LIP AGAIN Time Seen by Provider: 01/11/21 15:50 Source of Information: Reports: Patient, EMS, Old Records History Limitations: Reports: No Limitations - History of Present Illness INITIAL COMMENTS - FREE TEXT/NARRATIVE: 55 yo cognitively impaired [facility] patient just left the ER for eval of an exophytic lower lip lesion that was intermittently bleeding. When she was here minutes ago there was no bleeding. On the way home the lesion began bleeding again and EMS brought her back. Nursing who saw here a week ago for a similar visit states that this lesion was no where near as large as it is today. Onset: Gradual (lesion gradually growing. Bleeding onset is abrupt. ) Onset Date: 01/11/21 Duration: Minutes:, Intermittent (bleeding) Location: Reports: Face (lower lip lesion) Quality: Reports: Other (unsure) Severity: Moderate Improves with: Reports: Other (direct pressure) Worsens with: Reports: Other (? 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: Other (see below) (had stopped previously with time and/or direct pressure) - Related Data Allergies Allergy/AdvReac Type Severity Reaction Status Date / Time No Known Allergies Allergy Verified 01/11/21 15:38 Home Meds: Home Meds Omeprazole 40 mg PO DAILY 01/03/20 [History] Acetaminophen [Tylenol Arthritis Pain] 2 tab GTUBE BID 01/04/21 [History] Amiodarone HCl [Pacerone] 1 tab GTUBE BID 01/04/21 [History] Aspirin 1 tab GTUBE DAILY 01/04/21 [History] Baclofen 10 ml GTUBE Q6HR 01/04/21 [History] Lacosamide [Vimpat] 10 ml GTUBE BID 01/04/21 [History] Venlafaxine HCl [Venlafaxine ER] 1 tab GTUBE BID 01/04/21 [History] carvediloL [Carvedilol] 1 tab GTUBE BID 01/04/21 [History] fentaNYL [Fentanyl] 1 patch TOP ASDIRECTED 01/04/21 [History] levETIRAcetam [Levetiracetam] 15 ml GTUBE BID 01/04/21 [History] lisinopriL [Lisinopril] 1 tab GTUBE BID 01/04/21 [History] Past Medical History HEENT History: Reports: Impaired Vision 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: Reports: Hypertension [employer]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: Neurological History: Reports: Other (See Below) - Past Surgical History Head Surgeries/Procedures: Reports: None Cardiovascular Surgical History: Reports: None Female Surgical History: Reports: Section Dermatological Surgical History: Reports: None Social & Family History - Caffeine Use Caffeine Use: Reports: Coffee ED ROS ENT - Review of Systems Review Of Systems: See Below Constitutional: Reports: No Symptoms HEENT: Reports: Other (lower lip lesion with arteriolar bleeding) Skin: Reports: Other (lower lip lesion) Neurological: Reports: No Symptoms, Other (nonverbal) ED EXAM, ENT - Physical Exam Exam: See Below Exam Limited By: No Limitations General Appearance: WD/WN, No Apparent Distress Eye Exam: Bilateral Eye: Normal Inspection Ears: Normal External Exam Nose: Normal Inspection, No Blood Mouth/Throat: Other (exophytic R sided lower lip lesion now with arteriolar bleeding not controlled with direct pressure. ) Head: Atraumatic, Normocephalic Neck: Normal Inspection Respiratory/Chest: No Respiratory Distress, Lungs Clear, Normal Breath Sounds, No Accessory Muscle Use Cardiovascular: Regular Rate, Rhythm, No Edema Skin: Warm, Dry, Intact, Normal Color, No Rash ED ENT PROCEDURES - Additional/Other Procedure(s) Other (Free Text) Procedure(s): I anesthetized the lower lip lesion with 2 ml of 1% lidocaine with epi. I then placed a single 4-0 Ethilon purse string suture at the base of the exophytic lesion and tightened until the bleeding stopped. I then used electrocautery to cauterize the stump to further discourage rebleeding. Course - Orders/Labs/Meds Meds: Medications Discontinued Medications Generic Name Dose Route Start Last Admin Trade Name Freq PRN Reason Stop Dose Admin Lidocaine/Epinephrine 3 ml 01/11/21 15:34 Lidocaine 1% With Epinephrine 1:100,000 50 Ml Mdv SUBCUT 01/11/21 15:35 NOW STA Departure - Departure Time of Disposition: 16:30 Disposition: Home, Self-Care 01 Condition: Good Clinical Impression: Lip lesion - Discharge Information *PRESCRIPTION DRUG MONITORING PROGRAM REVIEWED*: Not Applicable *COPY OF PRESCRIPTION DRUG MONITORING REPORT IN PATIENT JANE: Not Applicable Referrals: PCP,None [Primary Care Provider] - Forms: ED Department Discharge Additional Instructions: Recheck with Юлия's primary care provider later this week for suture removal and recheck. Vaseline may be applied with a Q tip to the stump a few times daily. Recheck for rebleeding or signs of infection.
== END 2021-01-11 17:52 | disposition home or self-care (01) ==
LOC: JP.ED 15:32
DX: S01.511A Laceration without foreign body of lip, initial encounter (principal); I10 Essential (primary) hypertension; Z79.899 Other long term (current) drug therapy; Z79.82 Long term (current) use of aspirin; W50.3XXA Accidental bite by another person, initial encounter
CPT/HCPCS: 12001; 12011; 99283; 99283-25

== ENCOUNTER 2023-04-18 14:22 | Emergency (ER) | payer MEDICAID ==
[2023-04-18] MEDS ORDERED: Sodium Chloride 0.9% 10 ML Syringe FLUSH PRN (14:50)
[2023-04-18 15:12] LABS: BASOPHILS ABSOLUTE AUTO 0.05 K/uL (0.00-0.10); BASOPHILS PERCENT AUTO 0.6 % (0.1-1.3); EOSINOPHILS ABSOLUTE AUTO 0.15 K/uL (0.00-0.40); EOSINOPHILS PERCENT AUTO 1.7 % (0.0-5.4); IMMATURE GRAN ABSOLUTE AUTO 0.02 K/uL (0.00-0.23); IMMATURE GRAN PERCENT AUTO 0.2 % (0.0-0.7); LYMPHOCYTES ABSOLUTE AUTO 2.39 K/uL (0.8-3.3); LYMPHOCYTES PERCENT AUTO 26.8 % (11.4-47.7); MEAN CORPUSCULAR HEMOGLOBIN 27.8 pg (31.6-35.5); MEAN CORPUSCULAR HGB CONC 31.7 g/dL (31.6-35.5); MEAN CORPUSCULAR VOLUME 87.6 fL (81.4-99.0); MONOCYTES ABSOLUTE AUTO 1.11 K/uL (0.20-0.90); MONOCYTES PERCENT AUTO 12.4 % (3.3-12.6); NEUTROPHILS ABSOLUTE AUTO 5.21 K/uL (1.0-7.6); NEUTROPHILS PERCENT AUTO 58.3 % (40.0-78.1); PLATELET COUNT,PLT 295 K/uL (130-375); RED BLOOD CELL COUNT 4.68 M/uL (3.77-5.24); WHITE BLOOD CELL COUNT,WBC 8.9 K/uL (3.2-11.0)
[2023-04-18 15:14] LABS: BASE EXCESS VENOUS 5.9 mm/L; BICARBONATE,VENOUS 31.5 mmol/L; CARBOXYHEMOGLOBIN 3.8 % (0.0-1.6); METHEMOGLOBIN 0.2 %; O2 SATURATION VENOUS 96.8; OXYHEMOGLOBIN 92.9 %; PCO2 VENOUS 51.7 mm/Hg; PH,VENOUS 7.402 (7.350-7.450); PO2 VENOUS 90.2 mm/Hg; TOTAL HEMOGLOBIN 13.5 g/dL (12.0-16.0)
[2023-04-18 15:19] VITALS: PULSE 64
[2023-04-18 15:33] LABS: A/G RATIO 0.7 (1.2-2.2); ALANINE AMINOTRANSFERASE,ALT 45 U/L (12-78); ALBUMIN 2.9 g/dL (3.4-5.0); ALKALINE PHOSPHATASE 121 U/L (46-116); ASPARTATE AMNIOTRANSFERASE,AST 24 U/L (15-37); BILIRUBIN TOTAL 0.4 mg/dL (0.2-1.0); BLOOD UREA NITROGEN,BUN 27 mg/dL (7-18); C-REACTIVE PROTEIN 5.58 mg/dL (0.0-0.3); CALCIUM 8.2 mg/dL (8.5-10.1); CARBON DIOXIDE,CO2 30 mmol/L (21-32); CHLORIDE,CL 103 mmol/L (100-108); CREATININE 0.7 mg/dL (0.6-1.0); EST CRCL DRUG DOSING (CG) 80.42 mL/min; ESTIMATED GFR 100 mL/min (>60); GLUCOSE RANDOM 88 mg/dL (74-106); POTASSIUM,K 3.8 mmol/L (3.6-5.2); PROTEIN TOTAL,TP 6.9 g/dL (6.4-8.2); SODIUM,NA 139 mmol/L (140-148)
[2023-04-18 15:34] LABS: ANION GAP 9.8 mmol/L (5.0-14.0)
[2023-04-18 17:44] VITALS: BP 104/62
== END 2023-04-18 17:46 ==
LOC: JP.ED 14:22
DX: J96.91 Respiratory failure, unspecified with hypoxia (principal); I10 Essential (primary) hypertension; Z79.899 Other long term (current) drug therapy; Z88.0 Allergy status to penicillin; Z88.1 Allergy status to other antibiotic agents; Z20.822 Contact with and (suspected) exposure to COVID-19
CPT/HCPCS: 36415; 71045; 80053; 82803; 83605; 84145; 85025; 86140; 87040; 99283; 99284; U0002

== ENCOUNTER 2024-10-14 06:32 | Inpatient (IN) | payer MEDICAID ==
[2024-10-14] MEDS: Acetaminophen 650 MG Supp RECTAL ONE (06:49)
[2024-10-14] MEDS: Ertapenem 1 GM in Sodium Chloride 0.9% 50 ML IV ONE (07:06)
[2024-10-14] MEDS: Sodium Chloride 0.9% 1,000 ML IV SCH (07:06)
[2024-10-14] MEDS: VANCOmycin 1 GM in Sodium Chloride 0.9% 250 ML IV ONE (07:09)
[2024-10-14 07:11] LABS: BASOPHILS ABSOLUTE AUTO 0.06 K/uL (0.00-0.10); BASOPHILS PERCENT AUTO 0.6 % (0.1-1.3); EOSINOPHILS ABSOLUTE AUTO 0.04 K/uL (0.00-0.40); EOSINOPHILS PERCENT AUTO 0.4 % (0.0-5.4); HEMATOCRIT 41.2 % (34.3-46.0); HEMOGLOBIN 12.7 g/dL (11.2-15.5); IMMATURE GRAN ABSOLUTE AUTO 0.06 K/uL (0.00-0.23); IMMATURE GRAN PERCENT AUTO 0.6 % (0.0-0.7); LYMPHOCYTES PERCENT AUTO 11.5 % (11.4-47.7); MEAN CORPUSCULAR HGB CONC 30.8 g/dL (31.6-35.5); MEAN CORPUSCULAR VOLUME 87.5 fL (81.4-99.0); MONOCYTES ABSOLUTE AUTO 0.93 K/uL (0.20-0.90); MONOCYTES PERCENT AUTO 8.9 % (3.3-12.6); NEUTROPHILS ABSOLUTE AUTO 8.18 K/uL (1.0-7.6); PLATELET COUNT,PLT 281 K/uL (130-375); RED BLOOD CELL COUNT 4.71 M/uL (3.77-5.24); WHITE BLOOD CELL COUNT,WBC 10.5 K/uL (3.2-11.0)
[2024-10-14 07:38] LABS: A/G RATIO 0.6 (1.2-2.2); ALANINE AMINOTRANSFERASE,ALT 41 U/L (12-78); ALBUMIN 2.7 g/dL (3.4-5.0); ALKALINE PHOSPHATASE 187 U/L (46-116); ANION GAP 7.3 mmol/L (5.0-14.0); ASPARTATE AMNIOTRANSFERASE,AST 30 U/L (15-37); BILIRUBIN TOTAL 0.5 mg/dL (0.2-1.0); BLOOD UREA NITROGEN,BUN 15 mg/dL (7-18); CALCIUM 8.1 mg/dL (8.5-10.1); CARBON DIOXIDE,CO2 30 mmol/L (21-32); CHLORIDE,CL 103 mmol/L (100-108); CREATININE 0.5 mg/dL (0.6-1.0); EST CRCL DRUG DOSING (CG) 98.98 mL/min; ESTIMATED GFR 107 mL/min (>60); GLUCOSE RANDOM 101 mg/dL (74-106); POTASSIUM,K 3.7 mmol/L (3.6-5.2); PROTEIN TOTAL,TP 7.5 g/dL (6.4-8.2); SODIUM,NA 140 mmol/L (140-148)
[2024-10-14] MEDS: Sodium Chloride 0.9% 100 ML IV SCH (08:51)
[2024-10-14] MEDS: Iopamidol 612 MG/ML 100 ML Bottle IV SCH (08:51)
[2024-10-14] MEDS: Sodium Chloride 0.9% 10 ML Syringe FLUSH PRN (08:51)
[2024-10-14 11:42] LABS: APPEARANCE,URINE SLIGHTLY CLOUDY (CLEAR); BILIRUBIN,URINE NEGATIVE (NEGATIVE); COLOR,URINE YELLOW (YELLOW); GLUCOSE,URINE NEGATIVE (NEGATIVE); KETONES,URINE NEGATIVE (NEGATIVE); LEUKOCYTE ESTERASE,URINE NEGATIVE (NEGATIVE); NITRITE,URINE NEGATIVE (NEGATIVE); OCCULT BLOOD,URINE NEGATIVE (NEGATIVE); PH,URINE 8.5 (5.0-8.0); PROTEIN,URINE NEGATIVE (NEGATIVE)
[2024-10-14 11:47] LABS: AMORPHOUS SEDIMENT,URINE MANY; BACTERIA,URINE FEW; EPITHELIAL CELLS,URINE FEW; MUCUS,URINE NOT SEEN; RBC,URINE NOT SEEN (0-5); WBC,URINE 0-5 (0-5)
[2024-10-14] MEDS ORDERED: Polyethylene Glycol 3350 Powder 17 GM Packet PO PRN (14:22)
[2024-10-14] MEDS ORDERED: Albuterol 0.083% 2.5 MG/3 ML Neb Soln NEB PRN (14:22)
[2024-10-14] MEDS ORDERED: Ondansetron 4 MG/2 ML SDV IV PRN (14:22)
[2024-10-14] MEDS ORDERED: Sodium Chloride 0.9% 10 ML Syringe FLUSH PRN (14:22)
[2024-10-14] MEDS ORDERED: Acetaminophen Soln 160 MG/5 ML UD Cup GTUBE PRN (14:27)
[2024-10-14] MEDS: cefTRIAXone 1 GM in Sodium Chloride 0.9% 50 ML IV SCH (15:32)
[2024-10-14] MEDS: methylPREDNISolone Sodium Succinate 40 MG/1 ML SDV IVPUSH ONE (15:36)
[2024-10-14] MEDS: Enoxaparin 40 MG/0.4 ML Syringe SUBCUT SCH (15:42)
[2024-10-14] MEDS: Clindamycin in 0.9 % Sod Chlor 600 MG in Premix Bag 1 BAG IV SCH (16:09)
[2024-10-14] MEDS: Albuterol/Ipratropium 3.0-0.5 MG/3 ML Neb Soln NEB SCH (16:09)
[2024-10-14] MEDS: Baclofen 10 MG Tab GTUBE SCH (17:05)
[2024-10-14] MEDS: levETIRAcetam 500 MG/5 ML Solution ML 473 ml Bottle GTUBE SCH (20:46)
[2024-10-14] MEDS: Lisinopril 20 MG Tab GTUBE SCH (20:47)
[2024-10-14] MEDS: amLODIPine 5 MG Tab GTUBE SCH (20:50)
[2024-10-14] MEDS: Carvedilol 3.125 MG Tab GTUBE SCH (20:50)
[2024-10-14] MEDS: Amiodarone 200 MG Tab GTUBE SCH (20:50)
[2024-10-14] MEDS: Venlafaxine 75 MG Tab GTUBE SCH (20:50)
[2024-10-15] MEDS: Sodium Chloride 0.9% 1,000 ML IV SCH (00:18)
[2024-10-15 05:41] LABS: HEMATOCRIT 41.2 % (34.3-46.0); MEAN CORPUSCULAR HEMOGLOBIN 27.1 pg (31.6-35.5); MEAN CORPUSCULAR HGB CONC 31.6 g/dL (31.6-35.5); RED BLOOD CELL COUNT 4.79 M/uL (3.77-5.24); WHITE BLOOD CELL COUNT,WBC 7.7 K/uL (3.2-11.0)
[2024-10-15 05:59] LABS: ANION GAP 8.3 mmol/L (5.0-14.0); CALCIUM 8.6 mg/dL (8.5-10.1); CREATININE 0.4 mg/dL (0.6-1.0); EST CRCL DRUG DOSING (CG) 145.44 mL/min; MAGNESIUM 1.6 mg/dL (1.8-2.4); POTASSIUM,K 3.7 mmol/L (3.6-5.2)
[2024-10-15] MEDS: predniSONE 20 MG Tab PO SCH (08:07)
[2024-10-15] MEDS: Aspirin 81 MG Tab.Chew GTUBE SCH (08:07)
[2024-10-15] MEDS: Loratadine 10 MG Tab GTUBE SCH (08:08)
[2024-10-15] MEDS: Lactobacillus Rhamnosus GG (Probiotic) Cap GTUBE SCH (08:08)
[2024-10-15] MEDS: Pantoprazole 40 MG Delayed-Release Granules 1 Packet PO SCH (09:22)
[2024-10-15] MEDS: Magnesium Oxide 400 MG Tab PO SCH (09:22)
[2024-10-15] MEDS: Magnesium Sulf/Wat 2 GM/50 mL 2 GM in Premix Bag 1 BAG IV SCH (09:23)
[2024-10-15] MEDS: fentaNYL 50 MCG/HR Transdermal Patch TRDERM SCH (09:23)
[2024-10-15] MEDS: Potassium Chloride 10% 20 MEQ/15 ML Soln 15 ML UD Cup GTUBE ONE (09:23)
[2024-10-15] MEDS: fentaNYL 25 MCG/HR Transdermal Patch TRDERM SCH (09:24)
[2024-10-16 06:09] LABS: CALCIUM 8.7 mg/dL (8.5-10.1); CREATININE 0.3 mg/dL (0.6-1.0); EST CRCL DRUG DOSING (CG) 193.93 mL/min; POTASSIUM,K 4.3 mmol/L (3.6-5.2)
[2024-10-16 06:15] LABS: ANION GAP 12.3 mmol/L (5.0-14.0)
[2024-10-16 10:42] VITALS: BP 116/62; PULSE 77
== END 2024-10-16 11:10 | disposition home or self-care (01) | DRG 202 ==
LOC: JP.ED 06:32 → JP.MS 12:31
PROVIDERS: ADMIT Hospitalist; ATTEND Internal Medicine
DX: J20.9 Acute bronchitis, unspecified (principal); J96.21 Acute and chronic respiratory failure with hypoxia; G93.1 Anoxic brain damage, not elsewhere classified; G40.909 Epilepsy, unspecified, not intractable, without status epilepticus; Z66 Do not resuscitate; Z51.5 Encounter for palliative care; H54.7 Unspecified visual loss; I11.9 Hypertensive heart disease without heart failure; I25.10 Atherosclerotic heart disease of native coronary artery without angina pectoris; I25.2 Old myocardial infarction; K59.09 Other constipation; K21.9 Gastro-esophageal reflux disease without esophagitis; F32.A Depression, unspecified; E86.0 Dehydration; Z88.8 Allergy status to other drugs, medicaments and biological substances; Z88.0 Allergy status to penicillin; Z79.82 Long term (current) use of aspirin; Z98.891 History of uterine scar from previous surgery; Z79.899 Other long term (current) drug therapy
CPT/HCPCS: 36415; 71045; 71045-26; 71250; 71250-26; 74177; 74177-26; 80048; 80053; 81001; 83605; 83735; 84484; 85025; 85027; 87040; 87428-QW; 93005; 93010; 94640; 96361; 96365; 96367; 99223; 99233; 99238; 99285; 99285-25; A9270-GY; J0696; J0737; J1335; J1650; J2919; J3475; J7030; J7050; J7512; Q9967